=== PATIENT | female | born 1995 | race Caucasian/White ===

== ENCOUNTER 2017-07-01 13:38 | Outpatient (CLI) | payer OTHER ==
[~2017-07-01] VITALS: Ht 157.5 cm; Wt 56.3 kg
[~2017-07-01 13:38] MED LIST: ACET1TAB40 PO; IBUP-1542 PO
[2017-07-01 14:09] VITALS: Ht 157.5 cm; Wt 56.3 kg
[2017-07-01] MEDS ORDERED: PNV11TAB PO (14:09)
[2017-07-01 14:10] VITALS: BP 107/58; PULSE 83; RESP 20
--- NOTE | 2017-07-01 15:47 | RADRPT ---
PROCEDURE: Obstetrical ultrasound CLINICAL INDICATION: Decreased movement TECHNIQUE: Multiple sonographic images of the pelvis were obtained. The images were reviewed on a PACS workstation. COMPARISON: None FINDINGS: The cervix is closed with a length of 4.3 cm. There is a single viable intrauterine gestation. Cardiac activity is present with 151 beats per minute. There is a breech presentation. The placenta is anterior. There is no evidence for an abruption or placenta previa. There is a subjectively normal amount of amniotic fluid. Measurements were made in order to determine age. The results are as follows (cm): BPD =5.23 HC =19.07 AC =16.02 FL =3.46 Estimated gestational age by ultrasound of approximately 21 weeks, 2 days. The estimated date of delivery by ultrasound is 11/09/2017. Estimated gestational age by LMP of approximately 21 weeks, 3 days. The estimated date of delivery by LMP is 11/08/2017. EFW = 398 grams (27th percentile) IMPRESSION: Single viable intrauterine gestation of approximately 21 weeks, 2 days . The estimated date of delivery is 11/09/2017 . Dating by ultrasound is within 1 day of dating by LMP. Breech presentation. Estimated weight is in the 27th percentile. RPTAT: EE Physician Kevin Date Time Electronically viewed and signed by Physician Kevin on 07/01/2017 15:46 /
--- NOTE | 2017-07-01 17:09 | CONS ---
Date/Time of Note Date/Time of Note DATE: 07/01/17 TIME: 17:03 Consultation Date/Type/Reason Admit Date/Time July 01, 2017 OB triage consult This patient is a 21 years old primigravida with estimated date of confinement of November 08, 2017 which makes her now 21 weeks and 3 days . she came to triage clinic complaining of a vaginal spotting and low movement since this morning. On general examination she is a well-developed well-nourished lady at midterm, her general vital signs appears to be normal with blood pressure of 107/58, pulse rate 19 respiration 83 temperature 98.4,,,. heart tones 150 bpm. On examination of the abdomen it is soft not very many contractions heart tone is normal ,the tracing is reactive with occasional acceleration no decelerations. I did a pelvic examination the cervix was closed long and thick intact membrane Constitutional: No chills, No diaphoresis, No disoriented, No febrile, No improved, No no complaints, No other, No poor po, No requiring IVF, No requiring O2 Eyes: No discharge, No no complaints, No other, No pain, No redness, No visual change ENT: No bleeding, No congestion, No discharge, No dysphagia, No no complaints, No other, No pain, No sore throat Respiratory: No cough, No no complaints, No other, No pain, No pleuritic pain, No shortness of breath, No sputum, No wheezing Cardiovascular: No chest pain, No edema, No lightheadedness, No no complaints, No orthopenea, No other, No palpitations, No paroxysmal nocturnal dyspnea Gastrointestinal: No blood, No constipation, No decreased appetite, No diarrhea , No flatus, No nausea, No no complaints, No other, No pain, No passing stool, No vomiting Genitourinary: other (As I mentioned on pelvic examination cervix was closed and long and posterior) Musculoskeletal: No back pain, No bone/joint pain, No neck pain, No no complaints, No other, No restricted range of motion, No swelling Skin: No bruising, No erythema, No laceration, No no complaints, No other, No pruritis, No rash, No skin lesions Neurologic: No confusion, No dizziness, No focal-weakness, No headache, No no complaints, No other, No seizure, No syncope Additional Comments On ultrasound study ; The cervix was reported closed with a length of 4.3 cm single live intrauterine gestation with cardiac activity 151/min No evidence of placenta previa or abruptio. Estimated weight was 398 g which was 27 percentile estimated gestation based on the ultrasound is 21 weeks and 2 days which is compatible with her last menstrual period. Fetus in breech presentation. With this positive finding reassurance given to the patient. She was discharged home and she was advised to return to triage in case of true vaginal bleeding contractions or any other problem with her . End of dictation Social History Smoking Status: Never smoker Exam/Review of Systems Vital Signs Vitals Vital Signs Date Time Temp Pulse Resp B/P Pulse Ox O2 Delivery O2 Flow Rate FiO2 07/01/17 14:10 98.3 83 20 107/58 RADHA MACHADO MD Jul 01, 2017 17:09 RADHA MACHADO MD Jul 01, 2017 17:09
--- NOTE | 2017-07-01 17:18 | TRIAGE ---
OB Triage Datetime Report Generated by CPN: 07/01/2017 17:18 Datetime: 07/01/2017 16:01 Labor Evaluation Frequency: 0 Monitor Mode: External Heart Rate FHR Baseline Rate: 150 Monitor Mode: External US FHR Baseline Changes: No Baseline Change Variability: Moderate 6-25 bpm Accelerations: 15X15 Decelerations: None Category: Category I Pain Assessment Pain Presence: None/Denies Datetime: 07/01/2017 14:10 Stage of : OB Triage Assessment Type: Triage Maternal Assessment Level of Consciousness: Fully Conscious DTR's/Clonus: DTRs 2+; No Clonus Headache: Denies Blurred Vision: No Respiratory Effort: Unlabored; Regular Rhythm; Equal Expansion Breath Sounds, Left: Clear and Equal Breath Sounds, Right: Clear and Equal Nausea/Vomiting: Denies RUQ Epigastric Pain: Denies Degree: None Upper Extremities Edema: None Degree: None Facial Edema: None Temperature Route: Oral Fall Risk Assessment History of Falling: (0) No Secondary Diagnosis: (0) No Ambulatory Aid: (0) Bedrest/Nurse Assist IV Therapy: (0) No Gait: (0) Normal/Bedrest/Immobile Mental Status: (0) Oriented to Own Ability Fall Score: 0 Fall Risk Score Definition: No Risk: No action required Labor Evaluation Frequency: 0 Monitor Mode: External Heart Rate FHR Baseline Rate: 150 Monitor Mode: External US FHR Baseline Changes: No Baseline Change Variability: Moderate 6-25 bpm Accelerations: 15X15 Decelerations: None Category: Category I Vaginal Exam Vaginal Bleeding: Scant Datetime: 07/01/2017 14:00 Stage of : OB Triage Datetime: 07/01/2017 13:48 EGA: 21.3 Datetime: 07/01/2017 13:40 Time of Arrival: 07/01/2017 13:36 Arrived By: Ambulatory Arrived From: Home Chief Complaint: SPOTTING AND DFM Movement: Decreased Contractions: Denies/Absent Rupture of Membranes: Denies Vaginal Bleeding: Scant Vaginal Discharge: Denies Recent Sexual Intercouse: Denies Abdominal Trauma: Not Applicable Patient Complaints: Nausea; Vomiting; Other Time Provider Notified: 07/01/2017 14:53 Provider Notified: CARTER Initial Plan: EFW AND CX VIV
== END 2017-07-01 17:20 | disposition home or self-care (01) ==
LOC: L-D 13:38 → OBT 13:38 → OBG 13:47 → OBT 17:20
PROVIDERS: ATTEND Obstetrics & Gynecology
DX: O20.8 Other hemorrhage in early pregnancy (principal); O36.8120 Decreased fetal movements, second trimester, not applicable or unspecified; Z3A.21 21 weeks gestation of pregnancy
CPT/HCPCS: 76815; 76817; Z7500; G0463

== ENCOUNTER 2017-10-06 21:13 | Outpatient (CLI) | END 2017-10-07 01:39 | disposition home or self-care (01) ==

== ENCOUNTER 2017-10-17 21:18 | Outpatient (CLI) | END 2017-10-17 23:10 | disposition home or self-care (01) ==

== ENCOUNTER 2017-10-17 23:22 | Emergency (ER) | END 2017-10-18 01:09 | disposition home or self-care (01) ==

== ENCOUNTER 2017-11-03 12:31 | Outpatient (CLI) | END 2017-11-03 14:28 | disposition home or self-care (01) ==

== ENCOUNTER 2017-11-09 01:03 | Inpatient (IN) | END 2017-11-10 14:45 | disposition home or self-care (01) | DRG 782 ==

== ENCOUNTER 2017-11-12 08:19 | Outpatient (CLI) | END 2017-11-12 10:25 | disposition home or self-care (01) ==

== ENCOUNTER 2017-11-13 04:53 | Inpatient (IN) | END 2017-11-16 16:46 | disposition home or self-care (01) | DRG 766 ==

== ENCOUNTER 2018-03-04 10:05 | Emergency (ER) | END 2018-03-04 12:25 | disposition home or self-care (01) ==